=== PATIENT | female | born 1980 | race Caucasian/White ===

== ENCOUNTER 2021-02-22 00:32 | Emergency (ER) | payer OTHER ==
[2021-02-22 01:20] VITALS: BP 110/78; PULSE 87; TEMP 97.9; BMI 25.6
[2021-02-22 03:35] LABS: BASO % 0.9 % (0-2.0); EOS % 2.3 % (0-4.5); HEMOGLOBIN 12.3 GM/dL (10.7-15.3); LYMPH % 45.2 % (8-40); MCH 29.7 pg (25.7-33.7); MCHC 34.2 g/dl (32.0-36.0); MEAN CELL VOLUME 86.8 fl (80-96); MEAN PLT VOLUME 8.5 fl (7.5-11.1); MONO % 9.4 % (3.8-10.2); NEUT % 42.2 % (42.8-82.8); PLATELET COUNT 191 10^3/uL (134-434); RBC 4.15 M/mm3 (3.60-5.2); RDW 13.5 % (11.6-15.6); WHITE BLOOD COUNT 4.1 K/mm3 (4.0-10.0)
[2021-02-22 03:47] LABS: CALCIUM 8.2 mg/dL (8.5-10.1)
[2021-02-22 03:48] LABS: ALBUMIN 3.4 g/dl (3.4-5.0); BLOOD UREA NITROGEN 10.4 mg/dL (7-18)
[2021-02-22 03:51] LABS: CREATININE 0.5 mg/dL (0.55-1.3)
[2021-02-22 03:53] LABS: BILIRUBIN,TOTAL 0.3 mg/dL (0.2-1); TOT PROT 6.1 g/dl (6.4-8.2)
[2021-02-22 04:21] LABS: EPI CELLS 30 /uL (0-25.1); HYALINE CASTS 7 /uL (0-3.1); URINE APPEARANCE CLEAR; URINE BACTERIA 2190 /uL (0-1359); URINE BILIRUBIN NEGATIVE (NEGATIVE); URINE COLOR YELLOW; URINE GLUCOSE (UA) NEGATIVE (NEGATIVE); URINE KETONE NEGATIVE (NEGATIVE); URINE LEUK ESTERASE 2+ (NEGATIVE); URINE NITRITE NEGATIVE (NEGATIVE); URINE PROTEIN NEGATIVE (NEGATIVE); URINE RBC 24 /uL (0-23.9); URINE WBC 123 /uL (0-25.8)
[2021-02-22] MEDS ORDERED: NITROFURANTOIN MACROCRYSTAL 50 MG CAPSULE (FP) PO ONE (04:45)
== END 2021-02-22 04:50 | disposition home or self-care (01) ==
LOC: JER 00:32
DX: R22.43 Localized swelling, mass and lump, lower limb, bilateral (principal)
CPT/HCPCS: 36415; 71045-TC-FY; 80053; 81003; 84703; 85025; 87086; 99284-25

== ENCOUNTER 2021-05-12 20:55 | Emergency (ER) | payer OTHER ==
[2021-05-12 21:21] VITALS: BP 108/67; PULSE 97; TEMP 98.7; BMI 26.2
== END 2021-05-12 23:45 | disposition left against medical advice (07) ==
LOC: JER 20:55
DX: J02.9 Acute pharyngitis, unspecified (principal); R68.83 Chills (without fever); R51.9 Headache, unspecified
CPT/HCPCS: 99281-25

== ENCOUNTER 2022-09-14 04:58 | Emergency (ER) | payer OTHER ==
[2022-09-14 05:05] VITALS: RESP 18; BMI 26.5
[2022-09-14] MEDS ORDERED: MECLIZINE HCL 25 MG TABLET (FP) PO ONE (05:55)
[2022-09-14] MEDS ORDERED: ACETAMINOPHEN 1000 MG/100 ML BAG IVPB ONE (05:56)
[2022-09-14] MEDS ORDERED: METOCLOPRAMIDE HCL INJECTION 10 MG/2 ML VIAL IVPB ONE (05:56)
[2022-09-14] MEDS ORDERED: MAG HYDROX/AL HYDROX/SIMETH -MYLANTA- ORAL SUSPENSION PO ONE (05:56)
[2022-09-14] MEDS ORDERED: LACTATED RINGERS SOLUTION 1000 ML INFUS.BAG IV ONE (05:56)
[2022-09-14] MEDS ORDERED: FAMOTIDINE 20 MG/50 ML IVPB 20 MG/50 ML MG IVPB ONE ×2 (05:56→06:17)
[2022-09-14] MEDS ORDERED: SUCRALFATE 1 GM TABLET (FP) PO ONE (05:56)
[2022-09-14] MEDS ORDERED: MECLIZINE HCL 25 MG TABLET (FP) ONE (06:17)
[2022-09-14] MEDS ORDERED: METOCLOPRAMIDE HCL INJECTION 10 MG/2 ML VIAL ONE (06:17)
[2022-09-14] MEDS ORDERED: MAG HYDROX/AL HYDROX/SIMETH 30 ML UNIT-DOSE CUP ONE (06:17)
[2022-09-14] MEDS ORDERED: SUCRALFATE 1 GM TABLET (FP) ONE (06:17)
[2022-09-14 06:55] LABS: BASO % 0.4 % (0-2.0); EOS % 1.5 % (0-4.5); HEMATOCRIT 39.7 % (32.4-45.2); HEMOGLOBIN 13.4 GM/dL (10.7-15.3); LYMPH % 24.6 % (8-40); MCH 28.9 pg (25.7-33.7); MCHC 33.6 g/dl (32.0-36.0); MEAN CELL VOLUME 85.9 fl (80-96); MEAN PLT VOLUME 8.8 fl (7.5-11.1); MONO % 5.6 % (3.8-10.2); NEUT % 67.9 % (42.8-82.8); PLATELET COUNT 231 10^3/uL (134-434); RBC 4.62 M/mm3 (3.60-5.2); RDW 13.1 % (11.6-15.6); WHITE BLOOD COUNT 3.8 K/mm3 (4.0-10.0)
[2022-09-14 06:58] LABS: PROTHROMBIN TIME (PATIENT) 11.5 SEC (9.7-13.0)
[2022-09-14 07:14] LABS: CHLORIDE 103 mmol/L (98-107); SODIUM 138 mmol/L (136-145)
[2022-09-14 07:16] LABS: CALCIUM 9.2 mg/dL (8.5-10.1)
[2022-09-14 07:17] LABS: ALBUMIN 3.9 g/dl (3.4-5.0); ANION GAP 10 MMOL/L (8-16); CO2 26 mmol/L (21-32); GLUCOSE,RANDOM 119 mg/dL (74-106); LIPASE 155 U/L (73-393)
[2022-09-14 07:19] LABS: SGPT/ALT 30 U/L (13-61)
[2022-09-14 07:20] LABS: CREATININE 0.7 mg/dL (0.55-1.3); SGOT/AST 12 U/L (15-37)
[2022-09-14 07:21] LABS: BILIRUBIN,TOTAL 0.2 mg/dL (0.2-1); TOT PROT 7.2 g/dl (6.4-8.2)
[2022-09-14 07:23] LABS: ALK PHOS 63 U/L (45-117)
[2022-09-14 09:35] VITALS: BP 96/52; PULSE 77; TEMP 98.2
== END 2022-09-14 11:35 | disposition left against medical advice (07) ==
LOC: JER 04:58
PROC: 3E033GC Introduction of Other Therapeutic Substance into Peripheral Vein, Percutaneous Approach (ICD-10-PCS; principal; 2022-09-14)
DX: R42 Dizziness and giddiness (principal); R51.9 Headache, unspecified; R11.2 Nausea with vomiting, unspecified; R10.84 Generalized abdominal pain
CPT/HCPCS: 0241U-QW; 36415; 70450-TC; 71046-TC-FY; 74177-TC; 80053; 83690; 84484; 84703; 85025; 85610; 85730; 86850; 86900; 86901; 93005; 93010; 99285-25; Q9967